=== PATIENT | male | born 1965 | race African-American/Black ===

== ENCOUNTER 2019-05-18 09:18 | Inpatient (IN) | payer OTHER ==
[2019-05-18 11:45] LABS: INR 0.93 (0.83-1.09)
[2019-05-18 12:09] LABS: HEMATOCRIT 46.5 % (35.4-49); HEMOGLOBIN 15.4 GM/dL (11.7-16.9); MCH 27.7 pg (25.7-33.7); MCHC 33.1 g/dl (32.0-35.9); MEAN CELL VOLUME 83.9 fl (80-96); MEAN PLT VOLUME 11.5 fl (7.5-11.1); PLATELET COUNT 193 K/MM3 (134-434); RBC 5.55 M/mm3 (4.00-5.60); RDW 14.5 % (11.9-15.9); WHITE BLOOD COUNT 10.3 K/mm3 (4.0-10.0)
[2019-05-18] MEDS ORDERED: PANTOPRAZOLE SODIUM 40 MG VIAL IVPUSH ONE (12:30)
[2019-05-18] MEDS ORDERED: SODIUM CHLORIDE 0.9% 1000 ML INFUS.BAG IV ONE ×2 (12:30→15:06)
[2019-05-18] MEDS ORDERED: ONDANSETRON 4 MG/2 ML VIAL IVPUSH ONE (12:30)
--- NOTE | 2019-05-18 12:36 | PDOC ---
Documentation entered by Deana Pritchett SCRIBE, acting as scribe for Lee Ann Sánchez MD. Lee Ann Sánchez MD: This documentation has been prepared by the Shreyas roach Xhesika, SCRIBE, under my direction and personally reviewed by me in its entirety. I confirm that the documentation accurately reflects all work, treatment, procedures, and medical decision making performed by me. History of Present Illness - General Chief Complaint: Chest Pain Stated Complaint: CHEST PAIN, ABD Pain, vomiting History Source: Patient Exam Limitations: No Limitations - History of Present Illness Initial Comments: 05/18/19 11:24 The patient is a 53 year old male with a significant PMH of gastritis, DM (on metformin), and HLD who presents to the emergency department for hematemesis. Pt states initially his vomit was not bloody, but several episodes later the patient noticed streaks of blood while vomiting associated with epigastric burning. The patient states he was seen at [facility] a couple of weeks ago for nausea, was diagnosed with gastritis and was d/c home with protonix and zofran. Pt states he saw his PCP, Dr. Mcnally, last week for a routine check up. Pt went back to his office yesterday for his results, his BG was in the 500's, so the patient was placed on 1000mg metformin BID and was advised to come to the ER. The patient denies chest pain, shortness of breath, headache and dizziness. Denies fever, chills, cough, diarrhea and constipation. Denies dysuria, frequency, urgency and hematuria. Allergies: NKDA PCP: Jonas Sevilla Past History - Past Medical History Allergies/Adverse Reactions: Allergies Allergy/AdvReac Type Severity Reaction Status Date / Time No Known Allergies Allergy Verified 05/18/19 09:30 COPD: No Diabetes: Yes GI Disorders: Yes (gastritis) Hypercholesterolemia: Yes - Psycho Social/Smoking Cessation Hx Smoking History: Never smoked Information on smoking cessation initiated: No Hx Alcohol Use: No Drug/Substance Use Hx: No Review of Systems - Review of Systems Able to Perform ROS?: Yes Comments:: 05/18/19 11:24 GENERAL/CONSTITUTIONAL: No fever or chills. No weakness. HEAD, EYES, EARS, NOSE AND THROAT: No change in vision. No ear pain or discharge. No sore throat. CARDIOVASCULAR: No chest pain or shortness of breath. RESPIRATORY: No cough, wheezing, or hemoptysis. GASTROINTESTINAL: + hematemesis. No nausea, diarrhea or constipation. GENITOURINARY: No dysuria, frequency, or change in urination. MUSCULOSKELETAL: No joint or muscle swelling or pain. No neck or back pain. SKIN: No rash NEUROLOGIC: No headache, vertigo, loss of consciousness, or change in strength/ sensation. ENDOCRINE: No increased thirst. No abnormal weight change. HEMATOLOGIC/LYMPHATIC: No anemia, easy bleeding, or history of blood clots. ALLERGIC/IMMUNOLOGIC: No hives or skin allergy. *Physical Exam - Vital Signs Last Vital Signs Temp Pulse Resp BP Pulse Ox 97.5 F L 85 19 145/92 98 05/18/19 09:27 05/18/19 09:27 05/18/19 09:27 05/18/19 09:27 05/18/19 09:27 - Physical Exam 05/18/19 12:33 Awake alert no acute distress lungs are clear bilaterally heart is regular with no murmurs rubs or gallops abdomen is soft and mild epigastric tenderness no rebound no guarding skin is warm and dry no rash extremities are warm well perfused patient is awake alert and oriented x3 Heart Score/ECG Review #2 ECG reviewed & interpreted by me at: 15:15 General ECG Interpretation: Sinus Rhythm, Normal Rate (75 atrial enlargement. left axis. no st eleation or depression), Normal Intervals, No acute ischemic changes ED Treatment Course - LABORATORY CBC & Chemistry Diagram: 05/18/19 11:18 05/18/19 11:18 - ADDITIONAL ORDERS Additional order review: Laboratory Results 05/18/19 05/18/19 11:40 11:15 PT with INR 11.00 INR 0.93 B-Hydroxybutyrate Cancelled - RADIOLOGY Radiology Studies Ordered: Category Date Time Status CHEST PA & LAT [RAD] Stat Radiology 05/18/19 11:15 Ordered Medical Decision Making - Medical Decision Making 05/18/19 12:34 53-year-old male here with no known past medical history complaining of nausea for 1 week was seen in the ER 1 week ago and then seen again by his primary earlier this week did have outpatient labs drawn was called to the office yesterday for glucose of 530 his hemoglobin A1c was found to be 13. Patient was given insulin in the office and discharged home on metformin 1000 mg twice daily however over the last 12 hours the patient is developed extreme nausea vomiting has had several episodes of emesis initially nonbloody but recently streaked with bright red blood denies any dark black stool no fevers no chills mild epigastric burning discomfort no chest pain no shortness of breath Differential diagnosis includes DKA, hyperglycemia and dehydration, upper GI bleed, pancreatitis gastritis plan CBC CMP type and screen coags beta hydroxybutyrate will give IV hydration 2 L normal saline Zofran and Protonix patient will likely required admission for nausea vomiting and new onset diabetes discussed with his PCP Dr. Mcnally who confirmed labs will admit to hospitalist team 05/18/19 15:06 pt with mild anion gap 19, given 2 L NS. will treat insulin 8 units for sugar 400. beta hydroxybutyrate positive. new onset diabetes. will admit to hospital. also pt with hemetemisi/ given protonix and zofran. 05/18/19 15:[address] Cross, will admit. Discharge - Discharge Information Problems reviewed: Yes Clinical Impression/Diagnosis: Hematemesis, DKA (diabetic ketoacidoses) - Admission Yes - Follow up/Referral Referrals: Jonas Mcnally MD [Primary Care Provider] - - Patient Discharge Instructions - Post Discharge Activity
[2019-05-18] MEDS ORDERED: PANTOPRAZOLE SODIUM 40 MG/100 ML BAG IVPB ONE (12:41)
[2019-05-18] MEDS ORDERED: ONDANSETRON 4 MG/2 ML VIAL ONE (12:41)
[2019-05-18 13:25] LABS: ANION GAP 19 MMOL/L (8-16); BLOOD UREA NITROGEN 17.8 mg/dL (7-18); CALCIUM 9.5 mg/dL (8.5-10.1); CHLORIDE 91 mmol/L (98-107); CO2 23 mmol/L (21-32); CREATININE 1.3 mg/dL (0.55-1.3); LIPASE 104 U/L (73-393); POTASSIUM 4.7 mmol/L (3.5-5.1); SODIUM 132 mmol/L (136-145)
[2019-05-18 13:28] LABS: GLUCOSE,RANDOM 402 mg/dL (74-106)
[2019-05-18] MEDS ORDERED: INSULIN REGULAR HUMAN 100 UNITS/ML *VIAL IVPUSH ONE (15:05)
[2019-05-18 16:20] LABS: ARTERIAL BLOOD GAS BASE EXCESS -7.8 meq/l (-2-2); ARTERIAL BLOOD GAS PCO2 29.2 mmHg (35-45); ARTERIAL BLOOD GAS PO2 101 mmHg (80-100); ARTERIAL BLOOD GAS pH 7.36 (7.35-7.45)
[2019-05-18 16:21] LABS: ALLENS TEST POSITIVE; CARBOXYHEMOGLOBIN 0.8 % (0-2)
[2019-05-18] MEDS ORDERED: LACTATED RINGERS SOLUTION 1,000 ML IV SCH (16:30)
--- NOTE | 2019-05-18 16:34 | EKG ---
Test Reason : Blood Pressure : / mmHG Vent. Rate : 075 BPM Atrial Rate : 075 BPM P-R Int : 142 ms QRS Dur : 090 ms QT Int : 396 ms P-R-T Axes : 058 004 035 degrees QTc Int : 442 ms NORMAL SINUS RHYTHM POSSIBLE LEFT ATRIAL ENLARGEMENT LEFT VENTRICULAR HYPERTROPHY ABNORMAL ECG Confirmed by MD FRANCISCO, MARKIE ([id number]) on 05/18/2019 4:34:43 PM Referred By: Confirmed By:MARKIE SINGH MD
--- NOTE | 2019-05-18 16:44 | HP ---
CHIEF COMPLAINT: nausea, vomiting PCP: Dr. Mcnally HISTORY OF PRESENT ILLNESS: 53 yo M PMH of gastritis presented to ED today for nausea / vomiting. Pt states that for the past 2 weeks he has been feeling intermittent nausea, vomiting, chest tightness. Pt went to [place] ED 2 month ago where he was told he had gastritis and was given protonix and zofran. Pt did not find much relief and went to his PCP yesterday. PCP found A1C to be 13 and BGM > 500. Pt was given insulin in office and metformin with instructions to come to the ED if he experiences nausea/ vomiting. Pt ate an apple this am and then has had vomiting and > 10 episodes of vomit today. Pt states vomit has progressively become darker in color. now it is dark brown/ black color with streaks of bright red blood. pt states this has last happened 5 years ago and was told he had gastritis. He denies having any endoscopy or colonoscopy. ER course was notable for: (1)2L IVF (2)Zofran (3)8 U Insulin (4) > Bhydroxybutyrate Recent Travel: denies PAST MEDICAL HISTORY: see HPI PAST SURGICAL HISTORY: denies Social History: Smoking:smokes 1 ppd. Alcohol:stopped drinking ROSA Apr 24 Drugs: denies Allergies No Known Allergies Allergy (Verified 05/18/19 09:30) HOME MEDICATIONS:denies taking any. recently started on protonix and zofran 2 weeks ago from [facility], started on Metformin yesterday. REVIEW OF SYSTEMS CONSTITUTIONAL: Present: weakness,diaphoresis Absent: fever, chills, malaise, loss of appetite, weight change HEENT: Absent: rhinorrhea, nasal congestion, throat pain, throat swelling, difficulty swallowing, mouth swelling, ear pain, eye pain, visual changes CARDIOVASCULAR: Present: Chest pain Absent: syncope, palpitations, irregular heart rate, lightheadedness, peripheral edema RESPIRATORY: Present: SOB Absent: cough, dyspnea with exertion, orthopnea, wheezing, stridor, hemoptysis GASTROINTESTINAL: Presen: nausea, vomiting,constipation Absent: abdominal pain, abdominal distension, diarrhea, melena, hematochezia GENITOURINARY: Present: dysuria,urgency,frequency Absent: hesitancy, hematuria, flank pain, genital pain MUSCULOSKELETAL: Absent: myalgia, arthralgia, joint swelling, back pain, neck pain SKIN: Absent: rash, itching, pallor HEMATOLOGIC/IMMUNOLOGIC: Absent: easy bleeding, easy bruising, lymphadenopathy, frequent infections ENDOCRINE: Absent: unexplained weight gain, unexplained weight loss, heat intolerance, cold intolerance NEUROLOGIC: Absent: headache, focal weakness or paresthesias, dizziness, unsteady gait, seizure, mental status changes, bladder or bowel incontinence PHYSICAL EXAMINATION Vital Signs - 24 hr 05/18/19 05/18/19 05/18/19 09:27 09:29 16:10 Temperature 97.5 F L 97.9 F Pulse Rate 85 Pulse Rate [ 110 H Right] Respiratory 19 16 Rate Blood Pressure 145/92 Blood Pressure 143/93 [Left Arm] O2 Sat by Pulse 98 98 95 Oximetry (%) GENERAL: Awake, alert, and fully oriented, in no acute distress. HEAD: Normal with no signs of trauma. EYES: Pupils equal, round and reactive to light, extraocular movements intact EARS, NOSE, THROAT: oropharynx clear without exudates. Moist mucous membranes. NECK: no JVD LUNGS: Breath sounds equal, clear to auscultation bilaterally. No accessory muscle use. HEART: Regular rate and rhythm, normal S1 and S2 without murmur, rub or gallop. ABDOMEN: Soft, nontender, not distended, hypoactive bowel sounds, no guarding, no rebound, no masses. MUSCULOSKELETAL: Normal range of motion at all joints. No bony deformities or tenderness. No CVA tenderness. UPPER EXTREMITIES: 2+ pulses, warm, well-perfused. No cyanosis. No clubbing. No peripheral edema. 5/5 muscle strength b/l LOWER EXTREMITIES: 2+ pulses, warm, well-perfused. No calf tenderness. No peripheral edema. 5/5 muscle strength b/l NEUROLOGICAL: Cranial nerves II-XII intact. Normal speech. sensation intact b/l PSYCHIATRIC: Cooperative. Good eye contact. SKIN: Warm, dry, normal turgor, no rashes or lesions noted, normal capillary refill. Laboratory Last Values WBC 10.3 K/mm3 (4.0-10.0) H 05/18/19 11:18 RBC 5.55 M/mm3 (4.00-5.60) 05/18/19 11:18 Hgb 15.4 GM/dL (11.7-16.9) 05/18/19 11:18 Hct 46.5 % (35.4-49) 05/18/19 11:18 MCV 83.9 fl (80-96) 05/18/19 11:18 MCH 27.7 pg (25.7-33.7) 05/18/19 11:18 MCHC 33.1 g/dl (32.0-35.9) 05/18/19 11:18 RDW 14.5 % (11.9-15.9) 05/18/19 11:18 Plt Count 193 K/MM3 (134-434) 05/18/19 11:18 MPV 11.5 fl (7.5-11.1) H 05/18/19 11:18 PT with INR 11.00 SEC (9.7-13.0) 05/18/19 11:15 INR 0.93 (0.83-1.09) 05/18/19 11:15 Anticoagulation Therapy No Result Required. 05/18/19 15:50 Puncture Site Left radial 05/18/19 15:50 ABG pH 7.36 (7.35-7.45) 05/18/19 15:50 ABG pCO2 at Pt Temp 29.2 mmHg (35-45) L 05/18/19 15:50 ABG pO2 at Pt Temp 101 mmHg (80-100) H 05/18/19 15:50 ABG HCO3 15.9 mmol/L (22-27) L 05/18/19 15:50 ABG O2 Sat (Measured) 97.0 % (95-98) 05/18/19 15:50 ABG O2 Content 15.3 % vol 05/18/19 15:50 ABG Base Excess -7.8 meq/l (-2-2) L 05/18/19 15:50 Jak Test Positive 05/18/19 15:50 Carboxyhemoglobin 0.8 % (0-2) 05/18/19 15:50 Methemoglobin < 1.0 % (0-2) 05/18/19 15:50 O2 Delivery Device Room air 05/18/19 15:50 Oxygen Flow Rate Yes 05/18/19 15:50 Vent Mode No Result Required. 05/18/19 15:50 Vent Rate No Result Required. 05/18/19 15:50 Mechanical Rate No Result Required. 05/18/19 15:50 Pressure Support Vent No Result Required. 05/18/19 15:50 Sodium 132 mmol/L (136-145) L 05/18/19 11:18 Potassium 4.7 mmol/L (3.5-5.1) 05/18/19 11:18 Chloride 91 mmol/L (98-107) L 05/18/19 11:18 Carbon Dioxide 23 mmol/L (21-32) 05/18/19 11:18 Anion Gap 19 MMOL/L (8-16) H 05/18/19 11:18 BUN 17.8 mg/dL (7-18) 05/18/19 11:18 Creatinine 1.3 mg/dL (0.55-1.3) 05/18/19 11:18 Est GFR (CKD-EPI)AfAm 73.22 05/18/19 11:18 Est GFR (CKD-EPI)NonAf 63.18 05/18/19 11:18 POC Glucometer 381 UNITS (80-120) 05/18/19 16:00 Random Glucose 402 mg/dL (74-106) H* 05/18/19 11:18 Calcium 9.5 mg/dL (8.5-10.1) 05/18/19 11:18 Creatine Kinase 122 U/L (26-308) 05/18/19 11:18 Troponin I < 0.02 ng/ml (0.00-0.05) 05/18/19 11:18 Lipase 104 U/L (73-393) 05/18/19 11:18 Beta-Hydroxybutyrate > 46.0 mg/dL (0.2-2.8) H 05/18/19 11:18 B-Hydroxybutyrate Cancelled 05/18/19 11:40 Blood Type O POSITIVE 05/18/19 11:18 Antibody Screen Negative 05/18/19 11:18 Current Medications Al Hydroxide/Mg Hydroxide (Mylanta Suspension -) 30 ml PO Q6HPO [facility] Lactated Ringer's (Lactated Ringers Solution) 1,000 mls @ 100 mls/hr IV ASDIR [facility] Insulin Aspart (Novolog Vial Sliding Scale -) 1 vial SQ ACHS [facility]; Protocol Pantoprazole Sodium (Protonix -) 40 mg PO DAILY [facility] ASSESSMENT/PLAN: 53 yo M PMH of gastritis, newly dx DM presented to ED today for nausea / vomiting. Pt is admitted for hyperglycemia with ketosis and hematemesis Hyperglycemia with ketosis - BGM on admission 402, B hydroxybutyrate >46 -AG 19, pH 7.36 - will recheck BMP - s/p 8 U insulin. continue iss , bgm - continue close monitoring - c/w IV LR @ 125mls/hr. got 2 U in ED -pending A1C - UA with 3+ glucose 4+ ketones Nausea, vomiting, Hematemesis - protonix 40 ivp daily - monitor H/H - GI consult, Dr. Carreno. pending callback - lipase 104 Chest Pain - EKG reviewed, NSR no ST changes -trop neg x 1 HLD - pending Lipid panel F/E/N -IV LR @ 125 mls/hr -NPO -monitor lytes Visit type - Emergency Visit Emergency Visit: No - New Patient This patient is new to me today: Yes - Critical Care Critical Care patient: No ATTENDING PHYSICIAN STATEMENT I saw and evaluated the patient. I reviewed the resident's note and discussed the case with the resident. I agree with the resident's findings and plan as documented. SUBJECTIVE: OBJECTIVE: ASSESSMENT AND PLAN:
--- NOTE | 2019-05-18 17:29 | PN ---
Teaching Attending Note Name of Resident: Leticia Ervin ATTENDING PHYSICIAN STATEMENT I saw and evaluated the patient. I reviewed the resident's note and discussed the case with the resident. I agree with the resident's findings and plan as documented. SUBJECTIVE: 3 yo M PMH of gastritis presented to ED today for nausea / vomiting. Pt states that for the past 2 weeks he has been feeling intermittent nausea, vomiting, chest tightness. Pt went to [place] ED 2 month ago where he was told he had gastritis and was given protonix and zofran. Pt did not find much relief and went to his PCP yesterday. PCP found A1C to be 13 and BGM > 500. Pt was given insulin in office and metformin with instructions to come to the ED if he experiences nausea/ vomiting. Pt ate an apple this am and then has had vomiting and > 10 episodes of vomit today. Pt states vomit has progressively become darker in color. now it is dark brown/ black color with streaks of bright red blood. also generalized pain in the chest and epigadtric for 2 weeks, pt states this has last happened 5 years ago and was told he had gastritis. He denies having any endoscopy or colonoscopy. has been having polyuria and polydipsia, ER course was notable for: OBJECTIVE: O /e is comfortable nad alert, awake and oriented to time place and person, vss neck supple no jvd cvs s1/s2/0 chest ctab abd benign ext no c/c/e neuro non focal ASSESSMENT AND PLAN: ASSESSMENT/PLAN: 53 yo M PMH of gastritis, newly dx DM presented to ED today for nausea / vomiting. Pt is admitted for hyperglycemia with ketosis and hematemesis Hyperglycemia with ketosis - BGM on admission 402, B hydroxybutyrate >46 -AG 19, pH 7.36 - will recheck BMP - s/p 8 U insulin. continue Riss , bgm - continue close monitoring - c/w IV LR @ 125mls/hr. got 2 U in ED -pending A1C - UA with 3+ glucose 4+ ketones Nausea, vomiting, Hematemesis, epigastric pain, likely from the MW tear/ gastritis, - protonix 40 ivp daily - monitor H/H - GI consult, Dr. Carreno. pending callback - lipase 104
[2019-05-18] MEDS ORDERED: MAG HYDROX/AL HYDROX/SIMETH -MYLANTA- ORAL SUSPENSION PO SCH (18:00)
[2019-05-18 18:34] LABS: EPI CELLS 0.8 /HPF (0-5/HPF); HYALINE CASTS 1 /lpf (0-8); URINE APPEARANCE CLEAR; URINE BACTERIA 16.3 /hpf (NEGATIVE); URINE BILIRUBIN NEGATIVE (NEGATIVE); URINE COLOR YELLOW; URINE GLUCOSE (UA) 3+ (NEGATIVE); URINE KETONE 4+ (NEGATIVE); URINE LEUK ESTERASE NEGATIVE (NEGATIVE); URINE NITRITE NEGATIVE (NEGATIVE); URINE PROTEIN NEGATIVE (NEGATIVE); URINE RBC 0 /hpf (0-4); URINE UROBILINOGEN 0.2 mg/dL (0.2-1.0); URINE WBC 3 /hpf (0-5)
[2019-05-18] MEDS: LACTATED RINGERS SOLUTION 1,000 ML IV SCH (18:39)
[2019-05-18] MEDS ORDERED: MAG HYDROX/AL HYDROX/SIMETH 30 ML UNIT-DOSE CUP PO SCH (18:49)
[2019-05-18] MEDS: INSULIN SLIDING SCALE (NOVOLOG) 1 VIAL SQ SCH ×2 (18:51→22:33)
[2019-05-18] MEDS ORDERED: ONDANSETRON 4 MG/2 ML VIAL IVPUSH PRN (19:56)
--- NOTE | 2019-05-18 20:32 | CON.GI ---
Consult Consult Specialty:: GI Reason for Consultation:: Hematemesis - History of Present Illness Chief Complaint: >20 episodes of emesis since this morning with clear liquid chanigng to blood streaked dark material over course of day. History of Present Illness: Patient had been well until 2 weeks ago when he developed nausea, vomiting, chest discomfort and went to local ED. Told he had gastritis and discharged home on Zofran and Protonix. No real relief over last 2 weeks and this morning with progressive vomiting of clear material, evolving over the 20 or so episodes of emesis today to coffee ground like material and blood streaking. Hemoglobin normal in ED. Continues with nausea. Elevated blood sugar and ketonuria, serum hydroxybutyrate elevated. No known history of upper GI disease. No aspirin, Motrin, ibuprofen, or Aleve. No known liver disease. No family history of GI illness. - History Source History Provided By: Patient - Past Medical History Gastrointestinal: Yes: Gastritis. No: Esophageal Varices, GERD, GI Bleed - Alcohol/Substance Use Hx Alcohol Use: No - Smoking History Smoking history: Never smoked Home Medications - Allergies Allergies/Adverse Reactions: Allergies Allergy/AdvReac Type Severity Reaction Status Date / Time No Known Allergies Allergy Verified 05/18/19 09:30 Family Medical History Family History: Unremarkable Review of Systems - Review of Systems Gastrointestinal: reports: Vomiting, Vomiting Blood. denies: Abdominal Pain, Bloating, Constipation, Diarrhea, Dysphagia, Indigestion, Melena, Rectal Bleeding Physical Exam-GI Vital Signs: Vital Signs Temperature 97.9 F 05/18/19 16:10 Pulse Rate 110 H 05/18/19 16:10 Respiratory Rate 16 05/18/19 16:10 Blood Pressure 143/93 05/18/19 16:10 O2 Sat by Pulse Oximetry (%) 95 05/18/19 16:10 Constitutional: Yes: Well Nourished, No Distress, Calm Neck: No: Lymphadenopathy, Thyromegaly Cardiovascular: Yes: Tachycardia, S1, S2. No: Murmur Respiratory: Yes: CTA Bilaterally ...Auscultate: Yes: Normoactive Bowel Sounds ...Palpate: Yes: Soft. No: Hepatomegaly, Mass, Splenomegaly, Tenderness Labs: CBC, BMP 05/18/19 11:18 INR, PTT INR 0.93 (0.83-1.09) 05/18/19 11:15 Imaging - Results Chest X-ray: Report Reviewed Problem List - Problems (1) DKA (diabetic ketoacidoses) Assessment/Plan: Almost certainly the etiology of current nausea and vomiting. Appreciate efforts to control. Code(s): E11.10 - TYPE 2 DIABETES MELLITUS WITH KETOACIDOSIS WITHOUT COMA (2) Hematemesis Assessment/Plan: Hematemesis (and preceding bland emesis) with associated nausea likely a function of DKA. Bleeding component likely from Aga-Medina tear, but other etiologies possible including PUD, black esophagus, and others. Suggest: 1. NPO 2. 2 large bore IV's 3. Type and cross 4. IV PPI 5. Serial VSs and hemoglobin checks 6. Probable EGD tomorrow presuming stable blood glucose control 7. Anti-emetics Plans reviewed with agriculture consultant medicine resident at 8 PM Code(s): K92.0 - HEMATEMESIS
[2019-05-18 20:38] LABS: CALCIUM 9.7 mg/dL (8.5-10.1); CREATININE 1.1 mg/dL (0.55-1.3); POTASSIUM 4.6 mmol/L (3.5-5.1)
[2019-05-18] MEDS: MAG HYDROX/AL HYDROX/SIMETH 30 ML UNIT-DOSE CUP PO SCH (21:00)
[2019-05-18] MEDS: PANTOPRAZOLE SODIUM 40 MG VIAL IVPUSH SCH (22:11)
[2019-05-19] MEDS: MAG HYDROX/AL HYDROX/SIMETH 30 ML UNIT-DOSE CUP PO SCH ×4 (01:23→11:42)
[2019-05-19] MEDS: LACTATED RINGERS SOLUTION 1,000 ML IV SCH (05:52)
[2019-05-19] MEDS: INSULIN SLIDING SCALE (NOVOLOG) 1 VIAL SQ SCH ×4 (06:03→21:26)
[2019-05-19 08:12] LABS: BASO % 0.3 % (0-2.0); EOS % 0.1 % (0-4.5); HEMATOCRIT 46.3 % (35.4-49); HEMOGLOBIN 15.3 GM/dL (11.7-16.9); LYMPH % 8.3 % (8-40); MCH 27.6 pg (25.7-33.7); MEAN CELL VOLUME 83.6 fl (80-96); MEAN PLT VOLUME 11.4 fl (7.5-11.1); MONO % 4.2 % (3.8-10.2); NEUT % 87.1 % (42.8-82.8); PLATELET COUNT 170 K/MM3 (134-434); RBC 5.54 M/mm3 (4.00-5.60); RDW 14.6 % (11.9-15.9); WHITE BLOOD COUNT 12.7 K/mm3 (4.0-10.0)
[2019-05-19 09:40] LABS: CHOLESTEROL 244 mg/dL (50-200); HDL CHOLESTEROL 73 mg/dL (40-60); LDL CHOLESTEROL (ONLY SJRH) 144 mg/dL (5-100); TRIGLYCERIDES 100 mg/dL (0-150)
[2019-05-19 09:55] LABS: ALBUMIN 3.4 g/dl (3.4-5.0); BILIRUBIN,TOTAL 0.6 mg/dL (0.2-1); BLOOD UREA NITROGEN 20.3 mg/dL (7-18); CALCIUM 9.4 mg/dL (8.5-10.1); CREATININE 1.1 mg/dL (0.55-1.3); MAGNESIUM 2.7 mg/dL (1.8-2.4); PHOSPHOROUS 2.9 mg/dL (2.5-4.9); POTASSIUM 4.1 mmol/L (3.5-5.1); TOT PROT 6.7 g/dl (6.4-8.2)
[2019-05-19] MEDS ORDERED: PANTOPRAZOLE SODIUM 40 MG VIAL IVPUSH SCH (10:00)
[2019-05-19] MEDS ORDERED: PANTOPRAZOLE 40 MG TABLET PO SCH (10:00)
[2019-05-19] MEDS ORDERED: INSULIN (NOVOLOG) ASPART 100 UNITS/ML 10ML VIAL ONE (10:11)
[2019-05-19] MEDS: PANTOPRAZOLE SODIUM 40 MG VIAL IVPUSH SCH (10:20)
[2019-05-19] MEDS ORDERED: PT OWN MED DRAWER 7, Y5N ONE (11:41)
[2019-05-19] MEDS ORDERED: METOPROLOL TARTRATE 50 MG TABLET (FP) PO ONE (12:45)
--- NOTE | 2019-05-19 15:20 | PN ---
Progress Note, Physician Chief Complaint: hyperglycemia and hematemesis History of Present Illness: 53 year old male with PMH gastritis and DM with hyperglycemia presents to the ED with GERD like symptoms, worsened by DKA. - Current Medication List Current Medications: Active Medications Al Hydroxide/Mg Hydroxide (Mylanta Oral Suspension -) 30 ml PO Q6HPO [facility] Last Admin: 05/19/19 11:42 Dose: 30 ml Insulin Aspart (Novolog Vial Sliding Scale -) 1 vial SQ ACHS [facility]; Protocol Last Admin: 05/19/19 11:39 Dose: 4 units Ondansetron HCl (Zofran Injection) 4 mg IVPUSH Q4H PRN PRN Reason: NAUSEA AND/OR VOMITING Pantoprazole Sodium (Protonix Iv) 40 mg IVPUSH BID [facility] Last Admin: 05/19/19 10:20 Dose: 40 mg - Objective Vital Signs: Vital Signs Temperature 98.8 F 05/19/19 09:00 Pulse Rate 99 H 05/19/19 09:00 Respiratory Rate 18 05/19/19 09:00 Blood Pressure 159/104 H 05/19/19 09:00 O2 Sat by Pulse Oximetry (%) 98 05/19/19 09:00 Constitutional: Yes: Well Nourished, No Distress HENT: Yes: Atraumatic, Normocephalic Neck: Yes: Supple Cardiovascular: Yes: Regular Rate and Rhythm Respiratory: Yes: Regular, CTA Bilaterally Gastrointestinal: Yes: Normal Bowel Sounds, Soft Genitourinary: Yes: WNL Musculoskeletal: Yes: WNL Extremities: Yes: WNL Integumentary: Yes: WNL Neurological: Yes: Alert, Oriented Psychiatric: Yes: Alert, Oriented Labs: CBC, BMP 05/19/19 07:38 05/19/19 07:38 INR, PTT INR 0.93 (0.83-1.09) 05/18/19 11:15 Problem List - Problems (1) Chest pain due to GERD Assessment/Plan: cardiology eval pending likely GERD PPI, mylanta denies complaints, not reproducible ekg ok trop neg Code(s): R07.9 - CHEST PAIN, UNSPECIFIED; K21.9 - GASTRO-ESOPHAGEAL REFLUX DISEASE WITHOUT ESOPHAGITIS (2) Gastritis Assessment/Plan: GI Following NPO IVF- ivf was stopped r/t BP rising, will resume at lower dose IV antiemetics IV PPI for possible EGD Code(s): K29.70 - GASTRITIS, UNSPECIFIED, WITHOUT BLEEDING (3) Uncontrolled diabetes mellitus Assessment/Plan: endocrine consult a1c 14!! sliding scale monitor glucose especially while NPO IV hydration hold metformin while npo Code(s): E11.65 - TYPE 2 DIABETES MELLITUS WITH HYPERGLYCEMIA (4) FLEX (acute kidney injury) Assessment/Plan: IV F Code(s): N17.9 - ACUTE KIDNEY FAILURE, UNSPECIFIED (5) Hyperlipidemia Assessment/Plan: will need statin added when not npo total chol 244 Code(s): E78.5 - HYPERLIPIDEMIA, UNSPECIFIED (6) DKA (diabetic ketoacidoses) Assessment/Plan: endocrine eval IV hydration aggressively hold metformin while npo Code(s): E11.10 - TYPE 2 DIABETES MELLITUS WITH KETOACIDOSIS WITHOUT COMA (7) Hematemesis Assessment/Plan: GI following monitor for hematemesis PPI for EGD Code(s): K92.0 - HEMATEMESIS
--- NOTE | 2019-05-19 15:44 | PN.GI ---
GI Progress Note Subjective: No vomiting No melena No anemia Patient had chest pain this morning so EGD cancelled - Objective Vital Signs: Vital Signs Temperature 98.8 F 05/19/19 09:00 Pulse Rate 99 H 05/19/19 09:00 Respiratory Rate 18 05/19/19 09:00 Blood Pressure 159/104 H 05/19/19 09:00 O2 Sat by Pulse Oximetry (%) 98 05/19/19 09:00 Constitutional: Calm Eyes: No: Sclera Icterus Cardiovascular: Yes: Regular Rate and Rhythm Respiratory: Yes: CTA Bilaterally Gastrointestinal Inspection: No: Distention ...Auscultate: Yes: Normoactive Bowel Sounds ...Palpate: Yes: Soft ...Percussion: No: Tympanitic Edema: No (No LE edema) Neurological: Yes: Alert Labs: CBC, BMP 05/19/19 07:38 05/19/19 07:38 INR, PTT INR 0.93 (0.83-1.09) 05/18/19 11:15 Problem List - Problems (1) Hematemesis Assessment/Plan: No further vomiting, vomiting of blood. normal BUN and Hgb. Suepsct irritation from retching or possible nick treviño tear When cleared from cardiology standpoint can have EGD Advance diet Protonix 40mg daily Code(s): K92.0 - HEMATEMESIS
[2019-05-19] MEDS: SODIUM CHLORIDE 1,000 ML IV SCH (16:35)
--- NOTE | 2019-05-19 17:20 | CON.CARD ---
Consult Consult Specialty:: Cardiology Referred by:: Dr. Fall Reason for Consultation:: chest pain - History of Present Illness Chief Complaint: abdominal pain, nausea, vomiting. History of Present Illness: 53 year old man with known gastritis, sent to ER by pmd for 2 week history of recurrent nausea, vomiting, chest tightness and found to have severe uncontrolled diabetes concerning for DKA. pt seen and examined today in nad. states he has vomited multiple times and vomit has become darker in color. denies any other chest pain prior to the onset of his nausea and vomiting. no sob, palpitations, pnd, orthopnea, LE edema. - History Source History Provided By: Patient, Medical Record Limitations to Obtaining History: No Limitations - Past Medical History Gastrointestinal: Yes: Gastritis. No: Esophageal Varices, GERD, GI Bleed - Alcohol/Substance Use Hx Alcohol Use: No - Smoking History Smoking history: Never smoked Home Medications - Allergies Allergies/Adverse Reactions: Allergies Allergy/AdvReac Type Severity Reaction Status Date / Time No Known Allergies Allergy Verified 05/18/19 09:30 - Home Medications Home Medications: Ambulatory Orders metFORMIN HCL [Metformin HCl] 1,000 mg PO BIDAC 05/19/19 Family Medical History Family History: Denies Review of Systems - Review of Systems Constitutional: reports: Loss of Appetite. denies: No Symptoms, Chills, Diaphoresis, Fever, Lethargy, Malaise, Night Sweats, Unintentional Wgt. Loss, Weakness, Other Eyes: denies: No Symptoms, Blind Spots, Blurred Vision, Double Vision, Eye Pain , Floaters, Photophobia, Recent Change in Vision, Other HENT: denies: No Symptoms, Difficult Swallowing, Ear Discharge, Ear Pain, Epistaxis, Gingival Bleeding, Hearing Loss, Mouth Swelling, Nasal Congestion, Ocular Prosthesis, Throat Pain, Toothache, Ringing in Ears, Other Neck: denies: No Symptoms, Decreased ROM, Lumps, Pain on Movement, Stiffness, Swollen Glands, Tenderness, Other Cardiovascular: reports: Chest Pain. denies: No Symptoms, Edema, Palpitations, Shortness of Breath, Other Respiratory: denies: No Symptoms, Cough, Exercise Intolerance, Hemoptysis, Orthopnea, PND, Snoring, SOB, SOB on Exertion, Wheezing, Other Gastrointestinal: reports: Abdominal Pain, Nausea, Vomiting, Vomiting Blood. denies: No Symptoms, Bloating, Constipation, Diarrhea, Dysphagia, Indigestion, Melena, Rectal Bleeding, Other Genitourinary: denies: No Symptoms, Burning, Discharge, Dysuria, Flank Pain, Frequency, Hematuria, Incontinence, Lesions, Menses, Pain, Testicular Mass, Testicular Pain, Testicular Swelling, Urgency, Vaginal Bleeding, Other Breasts: denies: No Symptoms Reported, See HPI, Breast Implants, Discharge from Nipple, Lumps, Pain, Skin Changes, Other Musculoskeletal: denies: No Symptoms, Back Pain, Crepitus, Decreased ROM, Extremity Pain, Joint Pain, Joint Swelling, Muscle Pain, Muscle Cramps, Muscle Weakness, Other Integumentary: denies: No Symptoms, Blister, Bruising, Change in Color, Eczema, Erythema, Incision, Lesions, Lump, Pallor, Pruritis, Rash, Wound, Other Neurological: denies: No Symptoms, Change in LOC, Change in Speech, Confusion, Dizziness, Headache, Incoordination, Numbness, Parasthesia, Pre-Existing Deficit , Seizure, Syncope, Tremors, Unsteady Gait, Weakness, Other Endocrine: denies: No Symptoms, Excessive Sweating, Flushing, Increased Hunger, Increased Thirst, Intolerance to Cold, Intolerance to Heat, Unexplained Weight Gain, Unexplained Weight Loss, Other Hematology/Lymphatic: denies: No Symptoms, Easily Bruised, Excessive Bleeding, Swollen Glands, Other Psychiatric: denies: No Symptoms, Altered Sleep Pattern, Anxiety, Depression, Hallucinations, Panic, Paranoia, Suicidal, Other - Risk Factors Known Risk Factors: Yes: Diabetes Mellitus Vital Signs: Vital Signs Temperature 98.8 F 05/19/19 14:00 Pulse Rate 92 H 05/19/19 14:00 Respiratory Rate 18 05/19/19 14:00 Blood Pressure 146/87 05/19/19 14:00 O2 Sat by Pulse Oximetry (%) 98 05/19/19 09:00 Constitutional: Yes: No Distress, Calm Eyes: Yes: Conjunctiva Clear, EOM Intact HENT: Yes: Atraumatic, Normocephalic Neck: Yes: Supple, Trachea Midline Respiratory: Yes: Regular, CTA Bilaterally. No: Rales, Rhonchi, Wheezes Gastrointestinal: Yes: Normal Bowel Sounds, Soft Cardiovascular: Yes: Regular Rate and Rhythm. No: Bradycardia, Tachycardia, Pulse Irregular, Gallop, Rub, Varicosities JVD: No Carotid Bruit: No Heart Sounds: Yes: S1, S2. No: Split S2, S3, S4, Clicks, Gallop, Rub, Bruit Murmur: No: Systolic Murmur, Diastolic Murmur Extremities: Yes: WNL Edema: No Peripheral Pulses WNL: Yes Peripheral Pulses: 2+ Left Doralis Pedis, 2+ Right Dorsalis Pedis Neurological: Yes: Alert, Oriented Psychiatric: Yes: Alert, Oriented - Other Data Labs, Other Data: CBC, BMP 05/19/19 07:38 05/19/19 07:38 INR, PTT INR 0.93 (0.83-1.09) 05/18/19 11:15 nsr 75bpm, lae, lvh Imaging - Results Chest X-ray: Report Reviewed, Image Reviewed EKG: Report Reviewed, Image Reviewed Other: Report Reviewed, Image Reviewed Assessment/Plan 53 year old man with known gastritis, sent to ER by pmd for 2 week history of recurrent nausea, vomiting, chest tightness and found to have severe uncontrolled diabetes concerning for DKA. pt seen and examined today in nad. states he has vomited multiple times and vomit has become darker in color. denies any other chest pain prior to the onset of his nausea and vomiting. no sob, palpitations, pnd, orthopnea, LE edema. Chest pain-likely non-cardiac -likely GI secondary to recurrent vomiting -no ischemia on ekg -cardiac enzymes wnl -does not require additional inpatient cardiac work up at this time HTN -called by RN that pts BP is currently elevated 190s/100s -no report of chronic htn -review of BP trend from hospitalization thus far shows mildly elevated bp at baseline with intermittent severe uncontrolled periods -likely exacerbated by pain, dka -can start amlodipine 5mg now and daily -monitor bp trend and adjust as needed as per PMD no additional cardiac testing is needed at this time. will see as needed. please call with any additional questions.
[2019-05-19] MEDS: amLODIPine BESYLATE 5 MG TABLET (FP) PO SCH (18:11)
[2019-05-19 21:23] LABS: BASO % 0.3 % (0-2.0); HEMATOCRIT 43.3 % (35.4-49); HEMOGLOBIN 14.1 GM/dL (11.7-16.9); LYMPH % 8.5 % (8-40); MCH 27.3 pg (25.7-33.7); MCHC 32.6 g/dl (32.0-35.9); MEAN CELL VOLUME 83.9 fl (80-96); MEAN PLT VOLUME 11.6 fl (7.5-11.1); NEUT % 87.2 % (42.8-82.8); PLATELET COUNT 154 K/MM3 (134-434); RBC 5.16 M/mm3 (4.00-5.60); RDW 14.6 % (11.9-15.9)
[2019-05-20] MEDS: SODIUM CHLORIDE 1,000 ML IV SCH (05:05)
[2019-05-20] MEDS: INSULIN SLIDING SCALE (NOVOLOG) 1 VIAL SQ SCH ×5 (06:02→21:34)
[2019-05-20 08:11] LABS: BASO % 0.4 % (0-2.0); EOS % 0.1 % (0-4.5); HEMOGLOBIN 14.2 GM/dL (11.7-16.9); LYMPH % 10.9 % (8-40); MCH 27.8 pg (25.7-33.7); MCHC 33.1 g/dl (32.0-35.9); MEAN CELL VOLUME 84.1 fl (80-96); MEAN PLT VOLUME 11.8 fl (7.5-11.1); MONO % 4.8 % (3.8-10.2); NEUT % 83.8 % (42.8-82.8); RBC 5.11 M/mm3 (4.00-5.60); RDW 14.7 % (11.9-15.9); WHITE BLOOD COUNT 9.5 K/mm3 (4.0-10.0)
[2019-05-20 08:28] LABS: ALBUMIN 3.2 g/dl (3.4-5.0); BILIRUBIN,TOTAL 0.5 mg/dL (0.2-1); BLOOD UREA NITROGEN 19.1 mg/dL (7-18); CALCIUM 9.4 mg/dL (8.5-10.1); POTASSIUM 4.1 mmol/L (3.5-5.1); TOT PROT 6.4 g/dl (6.4-8.2)
--- NOTE | 2019-05-20 08:56 | PN ---
Progress Note (short form) - Note Progress Note: No vomiting No bleeding Cleared by cardiology Patient ate full liquid breakfast today EGD Monday 04/24 Problem List - Problems (1) Hematemesis Code(s): K92.0 - HEMATEMESIS
[2019-05-20 09:57] LABS: PLATELET ESTIMATE DECREASED
[2019-05-20 10:52] LABS: PLATELET COUNT 137 K/MM3 (134-434)
[2019-05-20] MEDS: amLODIPine BESYLATE 5 MG TABLET (FP) PO SCH (11:24)
[2019-05-20] MEDS: PANTOPRAZOLE 40 MG TABLET PO SCH (11:24)
--- NOTE | 2019-05-20 15:14 | PN ---
Progress Note, Physician Chief Complaint: hyperglycemia and hematemesis History of Present Illness: 53 year old male with PMH gastritis and DM with hyperglycemia presents to the ED with GERD like symptoms, worsened by DKA. - Current Medication List Current Medications: Active Medications Amlodipine Besylate (Norvasc -) 5 mg PO DAILY [facility] Last Admin: 05/20/19 11:24 Dose: 5 mg Sodium Chloride (Normal Saline -) 1,000 mls @ 75 mls/hr IV ASDIR [facility] Last Admin: 05/20/19 05:05 Dose: 75 mls/hr Insulin Aspart (Novolog Vial Sliding Scale -) 1 vial SQ ACHS [facility]; Protocol Last Admin: 05/20/19 12:01 Dose: 8 units Insulin Detemir (Levemir Vial) 20 units SQ BID [facility] Pantoprazole Sodium (Protonix -) 40 mg PO DAILY [facility] Last Admin: 05/20/19 11:24 Dose: 40 mg - Objective Vital Signs: Vital Signs Temperature 98.8 F 05/20/19 10:00 Pulse Rate 92 H 05/20/19 10:00 Respiratory Rate 18 05/20/19 10:00 Blood Pressure 144/94 05/20/19 10:00 O2 Sat by Pulse Oximetry (%) 98 05/19/19 21:00 Constitutional: Yes: Well Nourished, No Distress HENT: Yes: Atraumatic, Normocephalic Neck: Yes: Supple Cardiovascular: Yes: Regular Rate and Rhythm Respiratory: Yes: Regular, CTA Bilaterally Gastrointestinal: Yes: Normal Bowel Sounds, Soft Genitourinary: Yes: WNL Musculoskeletal: Yes: WNL Extremities: Yes: WNL Integumentary: Yes: WNL Neurological: Yes: Alert, Oriented Psychiatric: Yes: Alert, Oriented Labs: CBC, BMP 05/20/19 06:25 05/20/19 06:25 INR, PTT INR 0.93 (0.83-1.09) 05/18/19 11:15 Problem List - Problems (1) Chest pain due to GERD Assessment/Plan: cardiology consult appreciated, signed off, ok for proceeding with EGD likely GERD PPI, mylanta denies complaints, not reproducible Code(s): R07.9 - CHEST PAIN, UNSPECIFIED; K21.9 - GASTRO-ESOPHAGEAL REFLUX DISEASE WITHOUT ESOPHAGITIS (2) Gastritis Assessment/Plan: GI Following diet advanced IV antiemetics IV PPI for EGD Thursday Code(s): K29.70 - GASTRITIS, UNSPECIFIED, WITHOUT BLEEDING (3) Uncontrolled diabetes mellitus Assessment/Plan: endocrine consult a1c 14!! sliding scale hold metformin Code(s): E11.65 - TYPE 2 DIABETES MELLITUS WITH HYPERGLYCEMIA (4) FLEX (acute kidney injury) Assessment/Plan: IVF dc as eating/drinking monitor creat today 1.0 Code(s): N17.9 - ACUTE KIDNEY FAILURE, UNSPECIFIED (5) Hyperlipidemia Assessment/Plan: will need statin added when not npo total chol 244 Code(s): E78.5 - HYPERLIPIDEMIA, UNSPECIFIED (6) DKA (diabetic ketoacidoses) Assessment/Plan: endocrine eval hold metformin while npo a1c high sliding scale Code(s): E11.10 - TYPE 2 DIABETES MELLITUS WITH KETOACIDOSIS WITHOUT COMA (7) Hematemesis Assessment/Plan: GI following monitor for hematemesis PPI for EGD thursday Code(s): K92.0 - HEMATEMESIS
--- NOTE | 2019-05-20 15:39 | CONSULT ---
Consult Consult Specialty:: endocrine Referred by:: dr.naem combs Reason for Consultation:: dm new onset - History of Present Illness Chief Complaint: nausea and vomiting History of Present Illness: 53 yo M PMH of gastritis presented for nausea / vomiting. Pt has been feeling intermittent nausea, vomiting, chest tightness. Pt went to [facility] ED 2 month ago where he was told he had gastritis and was given protonix and zofran. Pt did not find much relief was found to have elevated blood sugars and elevated hba1c,he remained nauseas and vomited several times despite poor po intake.he denies fever cough chills,or headache - Past Medical History Gastrointestinal: Yes: Gastritis. No: Esophageal Varices, GERD, GI Bleed - Alcohol/Substance Use Hx Alcohol Use: No - Smoking History Smoking history: Never smoked Home Medications - Allergies Allergies/Adverse Reactions: Allergies Allergy/AdvReac Type Severity Reaction Status Date / Time No Known Allergies Allergy Verified 05/18/19 09:30 - Home Medications Home Medications: Ambulatory Orders metFORMIN HCL [Metformin HCl] 1,000 mg PO BIDAC 05/19/19 Review of Systems - Review of Systems Constitutional: reports: Loss of Appetite, Weakness Eyes: reports: Blurred Vision HENT: reports: No Symptoms Neck: reports: No Symptoms Cardiovascular: reports: No Symptoms Respiratory: reports: No Symptoms Gastrointestinal: reports: Bloating, Constipation, Nausea Genitourinary: reports: No Symptoms Breasts: reports: No Symptoms Reported Musculoskeletal: reports: No Symptoms Integumentary: reports: No Symptoms Neurological: reports: No Symptoms Endocrine: reports: Increased Thirst, Intolerance to Heat Physical Exam Vital Signs: Vital Signs Temperature 99.2 F 05/20/19 15:18 Pulse Rate 88 05/20/19 15:18 Respiratory Rate 18 05/20/19 15:18 Blood Pressure 152/82 05/20/19 15:18 O2 Sat by Pulse Oximetry (%) 98 05/19/19 21:00 Constitutional: Yes: Calm Eyes: Yes: EOM Intact HENT: Yes: Normocephalic Neck: Yes: Trachea Midline Cardiovascular: Yes: Regular Rate and Rhythm Respiratory: Yes: CTA Bilaterally Gastrointestinal: Yes: Normal Bowel Sounds ...Rectal Exam: Yes: Deferred Renal/: Yes: WNL Musculoskeletal: Yes: WNL Extremities: Yes: WNL Integumentary: Yes: WNL Neurological: Yes: Alert, Oriented Labs: CBC, BMP 05/20/19 06:25 05/20/19 06:25 Assessment/Plan Current Active Problems FLEX (acute kidney injury) (Acute) Chest pain due to GERD (Acute) DKA (diabetic ketoacidoses) (Acute) Gastritis (Acute) Hematemesis (Acute) Hyperlipidemia (Acute) Uncontrolled diabetes mellitus (Acute) Abnormal Lab Results 05/19/19 05/20/19 05/20/19 19:45 06:25 06:25 WBC 12.0 H MPV 11.6 H 11.8 H Absolute Neuts (auto) 10.5 H Neutrophils % 87.2 H 83.8 H BUN 19.1 H Random Glucose 274 H AST 8 L Albumin 3.2 L Laboratory Results - last 24 hr 05/19/19 05/19/19 05/19/19 16:31 19:45 21:24 WBC 12.0 H RBC 5.16 Hgb 14.1 Hct 43.3 MCV 83.9 MCH 27.3 MCHC 32.6 RDW 14.6 Plt Count 154 MPV 11.6 H Absolute Neuts (auto) 10.5 H Neutrophils % 87.2 H Lymphocytes % 8.5 Monocytes % 4.0 Eosinophils % 0.0 D Basophils % 0.3 Nucleated RBC % 0 Platelet Estimate Platelet Comment Sodium Potassium Chloride Carbon Dioxide Anion Gap BUN Creatinine Est GFR (CKD-EPI)AfAm Est GFR (CKD-EPI)NonAf POC Glucometer 273 252 Random Glucose Calcium Total Bilirubin AST ALT Alkaline Phosphatase Total Protein Albumin 05/20/19 05/20/19 05/20/19 05:52 06:25 06:25 WBC 9.5 RBC 5.11 Hgb 14.2 Hct 43.0 MCV 84.1 MCH 27.8 MCHC 33.1 RDW 14.7 Plt Count 137 MPV 11.8 H Absolute Neuts (auto) 7.9 Neutrophils % 83.8 H Lymphocytes % 10.9 D Monocytes % 4.8 Eosinophils % 0.1 D Basophils % 0.4 Nucleated RBC % 0 Platelet Estimate Decreased Platelet Comment Present Sodium 140 Potassium 4.1 Chloride 106 Carbon Dioxide 24 Anion Gap 11 BUN 19.1 H Creatinine 1.0 Est GFR (CKD-EPI)AfAm 100.55 Est GFR (CKD-EPI)NonAf 86.76 POC Glucometer 281 Random Glucose 274 H Calcium 9.4 Total Bilirubin 0.5 AST 8 L ALT 17 Alkaline Phosphatase 100 Total Protein 6.4 Albumin 3.2 L 05/20/19 12:00 WBC RBC Hgb Hct MCV MCH MCHC RDW Plt Count MPV Absolute Neuts (auto) Neutrophils % Lymphocytes % Monocytes % Eosinophils % Basophils % Nucleated RBC % Platelet Estimate Platelet Comment Sodium Potassium Chloride Carbon Dioxide Anion Gap BUN Creatinine Est GFR (CKD-EPI)AfAm Est GFR (CKD-EPI)NonAf POC Glucometer 281 Random Glucose Calcium Total Bilirubin AST ALT Alkaline Phosphatase Total Protein Albumin Laboratory Tests 05/19/19 07:38 TSH 0.07 L plan: bgm qachs novolog doses levemir titrate doses 20 iu bid diet nutrition
[2019-05-20 16:10] VITALS: BMI 29.6
[2019-05-20] MEDS ORDERED: INSULIN (NOVOLOG) ASPART 100 UNITS/ML 10ML VIAL ONE ×2 (17:24→21:15)
[2019-05-20] MEDS ORDERED: PT OWN MED DRAWER 7, Y5N ONE (18:47)
[2019-05-20] MEDS ORDERED: INSULIN (LEVEMIR) 100 UNITS/ML UNITS SQ SCH (22:00)
[2019-05-20] MEDS: ONDANSETRON 4 MG/2 ML VIAL IVPUSH PRN (22:47)
[2019-05-21] MEDS: INSULIN SLIDING SCALE (NOVOLOG) 1 VIAL SQ SCH ×4 (06:30→21:45)
[2019-05-21 08:45] LABS: BASO % 0.3 % (0-2.0); EOS % 0.5 % (0-4.5); HEMATOCRIT 42.7 % (35.4-49); HEMOGLOBIN 14.4 GM/dL (11.7-16.9); LYMPH % 27.2 % (8-40); MCH 27.7 pg (25.7-33.7); MCHC 33.7 g/dl (32.0-35.9); MEAN CELL VOLUME 82.3 fl (80-96); MEAN PLT VOLUME 11.3 fl (7.5-11.1); PLATELET COUNT 144 K/MM3 (134-434); RBC 5.18 M/mm3 (4.00-5.60); RDW 14.4 % (11.9-15.9); WHITE BLOOD COUNT 6.7 K/mm3 (4.0-10.0)
[2019-05-21] MEDS ORDERED: INSULIN (LEVEMIR) 100 UNITS/ML UNITS SQ ONE ×2 (09:23→11:16)
[2019-05-21] MEDS: PANTOPRAZOLE 40 MG TABLET PO SCH (09:28)
[2019-05-21] MEDS: amLODIPine BESYLATE 5 MG TABLET (FP) PO SCH (09:28)
[2019-05-21 09:46] LABS: ALBUMIN 3.2 g/dl (3.4-5.0); BLOOD UREA NITROGEN 14.6 mg/dL (7-18); CALCIUM 8.8 mg/dL (8.5-10.1); CREATININE 0.9 mg/dL (0.55-1.3); POTASSIUM 3.8 mmol/L (3.5-5.1); TOT PROT 6.6 g/dl (6.4-8.2)
--- NOTE | 2019-05-21 10:05 | PN ---
Progress Note, Physician Chief Complaint: Gastritis Hyperglycemia DM Hematemesis History of Present Illness: Previous notes and events reviewed awake and alert NAD denies further episodes of hematemesis denies chest pain or palpitations is scheduled for EGD on Thursday BS better controlled AG 19~7 - Current Medication List Current Medications: Active Medications Amlodipine Besylate (Norvasc -) 5 mg PO DAILY [facility] Last Admin: 05/21/19 09:28 Dose: 5 mg Insulin Aspart (Novolog Vial Sliding Scale -) 1 vial SQ ACHS [facility]; Protocol Last Admin: 05/21/19 06:30 Dose: 5 units Insulin Detemir (Levemir Vial) 20 units SQ 0700,2200 [facility] Last Admin: 05/21/19 09:30 Dose: 20 units Ondansetron HCl (Zofran Injection) 4 mg IVPUSH Q6H PRN PRN Reason: NAUSEA Last Admin: 05/20/19 22:47 Dose: 4 mg Pantoprazole Sodium (Protonix -) 40 mg PO DAILY [facility] Last Admin: 05/21/19 09:28 Dose: 40 mg - Objective Vital Signs: Vital Signs Temperature 99.3 F 05/21/19 06:00 Pulse Rate 68 05/21/19 09:30 Respiratory Rate 18 05/21/19 09:30 Blood Pressure 148/82 05/21/19 09:30 O2 Sat by Pulse Oximetry (%) 99 05/21/19 09:00 Constitutional: Yes: No Distress, Calm Eyes: Yes: Conjunctiva Clear HENT: Yes: Atraumatic Cardiovascular: Yes: Regular Rate and Rhythm Respiratory: Yes: Regular, CTA Bilaterally Gastrointestinal: Yes: Normal Bowel Sounds, Soft Musculoskeletal: Yes: WNL Extremities: Yes: WNL Edema: No Neurological: Yes: Alert, Oriented Psychiatric: Yes: Alert, Oriented Labs: CBC, BMP 05/21/19 07:53 05/21/19 07:53 INR, PTT INR 0.93 (0.83-1.09) 05/18/19 11:15 Problem List - Problems (1) FLEX (acute kidney injury) Assessment/Plan: resolved BUN/Cr 14.9/0.6 monitor Renal function Code(s): N17.9 - ACUTE KIDNEY FAILURE, UNSPECIFIED (2) Gastritis Assessment/Plan: GI on board Pantoprazole for EGD on Thursday full liquid diet Code(s): K29.70 - GASTRITIS, UNSPECIFIED, WITHOUT BLEEDING (3) Hyperlipidemia Assessment/Plan: TC 244 will start on Crestor 5mg HS Code(s): E78.5 - HYPERLIPIDEMIA, UNSPECIFIED (4) Uncontrolled diabetes mellitus Assessment/Plan: Endocrinology on board Lantus 20U SQ BID ISS Hga1c 14% AG 19~7 Dietary consult Code(s): E11.65 - TYPE 2 DIABETES MELLITUS WITH HYPERGLYCEMIA (5) Hematemesis Assessment/Plan: GI on board no further episodes reported for ENdoscopy on Thursday Pantoprazole stable Hg 14.4 Code(s): K92.0 - HEMATEMESIS (6) Chest pain due to GERD Assessment/Plan: Cardiology on board cleared for EGD on thursday no further reports of chest pain Code(s): R07.9 - CHEST PAIN, UNSPECIFIED; K21.9 - GASTRO-ESOPHAGEAL REFLUX DISEASE WITHOUT ESOPHAGITIS Assessment/Plan see problem list SCDs
[2019-05-21] MEDS ORDERED: INSULIN (NOVOLOG) ASPART 100 UNITS/ML 10ML VIAL ONE ×2 (11:16→17:43)
--- NOTE | 2019-05-21 12:44 | PN ---
Progress Note, Physician Chief Complaint: comfortable no complaint - Current Medication List Current Medications: Active Medications Amlodipine Besylate (Norvasc -) 5 mg PO DAILY [facility] Last Admin: 05/21/19 09:28 Dose: 5 mg Insulin Aspart (Novolog Vial Sliding Scale -) 1 vial SQ ACHS [facility]; Protocol Last Admin: 05/21/19 11:18 Dose: 7 units Insulin Detemir (Levemir Vial) 20 units SQ 0700,2200 [facility] Last Admin: 05/21/19 09:30 Dose: 20 units Ondansetron HCl (Zofran Injection) 4 mg IVPUSH Q6H PRN PRN Reason: NAUSEA Last Admin: 05/20/19 22:47 Dose: 4 mg Pantoprazole Sodium (Protonix -) 40 mg PO DAILY [facility] Last Admin: 05/21/19 09:28 Dose: 40 mg Rosuvastatin Calcium (Crestor -) 5 mg PO HS [facility] - Objective Vital Signs: Vital Signs Temperature 99.3 F 05/21/19 06:00 Pulse Rate 68 05/21/19 09:30 Respiratory Rate 18 05/21/19 09:30 Blood Pressure 148/82 05/21/19 09:30 O2 Sat by Pulse Oximetry (%) 99 05/21/19 09:00 Constitutional: Yes: Calm Eyes: Yes: EOM Intact HENT: Yes: Normocephalic Neck: Yes: Trachea Midline Cardiovascular: Yes: Regular Rate and Rhythm Respiratory: Yes: CTA Bilaterally Gastrointestinal: Yes: Normal Bowel Sounds Genitourinary: Yes: WNL Breast(s): Yes: WNL Musculoskeletal: Yes: WNL Extremities: Yes: WNL Edema: No Neurological: Yes: Alert, Oriented Labs: CBC, BMP 05/21/19 07:53 05/21/19 07:53 INR, PTT INR 0.93 (0.83-1.09) 05/18/19 11:15 Assessment/Plan Current Active Problems hyperthyrodism hyperemisis related FLEX (acute kidney injury) (Acute) Chest pain due to GERD (Acute) DKA (diabetic ketoacidoses) (Acute) Gastritis (Acute) Hematemesis (Acute) Hyperlipidemia (Acute) Uncontrolled diabetes mellitus (Acute) Laboratory Results - last 24 hr 05/20/19 05/20/19 05/20/19 06:25 16:45 21:30 WBC RBC Hgb Hct MCV MCH MCHC RDW Plt Count MPV Absolute Neuts (auto) Neutrophils % Lymphocytes % Monocytes % Eosinophils % Basophils % Nucleated RBC % Sodium 140 Potassium 4.1 Chloride 106 Carbon Dioxide 24 Anion Gap 11 BUN 19.1 H Creatinine 1.0 Est GFR (CKD-EPI)AfAm 100.55 Est GFR (CKD-EPI)NonAf 86.76 POC Glucometer 210 227 Random Glucose 274 H Calcium 9.4 Total Bilirubin 0.5 AST 8 L ALT 17 Alkaline Phosphatase 100 Total Protein 6.4 Albumin 3.2 L TSH 0.11 L D Free T4 1.26 H 05/21/19 05/21/19 05/21/19 06:20 07:53 07:53 WBC 6.7 RBC 5.18 Hgb 14.4 Hct 42.7 MCV 82.3 MCH 27.7 MCHC 33.7 RDW 14.4 Plt Count 144 MPV 11.3 H Absolute Neuts (auto) 4.5 Neutrophils % 66.0 D Lymphocytes % 27.2 D Monocytes % 6.0 Eosinophils % 0.5 D Basophils % 0.3 Nucleated RBC % 0 Sodium 142 Potassium 3.8 Chloride 106 Carbon Dioxide 29 Anion Gap 7 L BUN 14.6 Creatinine 0.9 Est GFR (CKD-EPI)AfAm 114.21 Est GFR (CKD-EPI)NonAf 98.54 POC Glucometer 154 Random Glucose 126 H Calcium 8.8 Total Bilirubin 1.0 AST 10 L ALT 18 Alkaline Phosphatase 100 Total Protein 6.6 Albumin 3.2 L TSH 0.25 L D Free T4 05/21/19 05/21/19 07:53 11:13 WBC RBC Hgb Hct MCV MCH MCHC RDW Plt Count MPV Absolute Neuts (auto) Neutrophils % Lymphocytes % Monocytes % Eosinophils % Basophils % Nucleated RBC % Sodium Potassium Chloride Carbon Dioxide Anion Gap BUN Creatinine Est GFR (CKD-EPI)AfAm Est GFR (CKD-EPI)NonAf POC Glucometer 202 Random Glucose Calcium Total Bilirubin AST ALT Alkaline Phosphatase Total Protein Albumin TSH Free T4 1.26 H impression : Laboratory Tests 05/19/19 05/20/19 05/20/19 07:38 06:25 21:30 POC Glucometer 227 TSH 0.07 L 0.11 L D Free T4 05/21/19 05/21/19 05/21/19 06:20 07:53 07:53 POC Glucometer 154 TSH 0.25 L D Free T4 1.26 H 05/21/19 11:13 POC Glucometer 202 TSH Free T4 plan: bgm coverage follow thyroid function outpatient levemir 30 units am daily
[2019-05-21] MEDS: INSULIN (LEVEMIR) 100 UNITS/ML UNITS SQ SCH (21:46)
[2019-05-21] MEDS: ONDANSETRON 4 MG/2 ML VIAL IVPUSH PRN (21:46)
[2019-05-21] MEDS: ROSUVASTATIN CA 5 MG TABLET (FP) PO SCH (21:46)
[2019-05-21] MEDS ORDERED: INSULIN (LEVEMIR) 100 UNITS/ML UNITS SQ SCH (22:00)
[2019-05-22] MEDS: ONDANSETRON 4 MG/2 ML VIAL IVPUSH PRN (05:54)
[2019-05-22] MEDS: INSULIN SLIDING SCALE (NOVOLOG) 1 VIAL SQ SCH ×4 (06:24→23:40)
[2019-05-22 09:34] LABS: HEMATOCRIT 42.2 % (35.4-49); HEMOGLOBIN 14.2 GM/dL (11.7-16.9); MCH 27.7 pg (25.7-33.7); MCHC 33.5 g/dl (32.0-35.9); MEAN CELL VOLUME 82.6 fl (80-96); MEAN PLT VOLUME 11.1 fl (7.5-11.1); PLATELET COUNT 145 K/MM3 (134-434); RBC 5.11 M/mm3 (4.00-5.60); RDW 14.5 % (11.9-15.9); WHITE BLOOD COUNT 5.6 K/mm3 (4.0-10.0)
[2019-05-22] MEDS: PANTOPRAZOLE 40 MG TABLET PO SCH (09:34)
[2019-05-22] MEDS: INSULIN (LEVEMIR) 100 UNITS/ML UNITS SQ SCH ×2 (09:34→22:57)
[2019-05-22] MEDS: amLODIPine BESYLATE 5 MG TABLET (FP) PO SCH (09:35)
[2019-05-22 10:03] LABS: ALBUMIN 3.1 g/dl (3.4-5.0); BILIRUBIN,TOTAL 0.6 mg/dL (0.2-1); BLOOD UREA NITROGEN 14.4 mg/dL (7-18); CALCIUM 8.9 mg/dL (8.5-10.1); CREATININE 0.8 mg/dL (0.55-1.3); POTASSIUM 3.4 mmol/L (3.5-5.1); TOT PROT 6.1 g/dl (6.4-8.2)
--- NOTE | 2019-05-22 11:03 | PN ---
Progress Note, Physician Chief Complaint: Gastritis Hyperglycemia DM Hematemesis History of Present Illness: Previous notes and events reviewed awake and alert NAD denies further episodes of hematemesis denies chest pain or palpitations is scheduled for EGD on Thursday had episodes of nausea and non-bloody vomitus last night, denies further episodes AG 19~7 - Current Medication List Current Medications: Active Medications Amlodipine Besylate (Norvasc -) 5 mg PO DAILY [facility] Last Admin: 05/22/19 09:35 Dose: 5 mg Insulin Aspart (Novolog Vial Sliding Scale -) 1 vial SQ ACHS [facility]; Protocol Last Admin: 05/22/19 06:24 Dose: Not Given Insulin Detemir (Levemir Vial) 30 units SQ 0700,2200 [facility] Last Admin: 05/22/19 09:34 Dose: 30 units Ondansetron HCl (Zofran Injection) 4 mg IVPUSH Q6H PRN PRN Reason: NAUSEA Last Admin: 05/22/19 05:54 Dose: 4 mg Pantoprazole Sodium (Protonix -) 40 mg PO DAILY [facility] Last Admin: 05/22/19 09:34 Dose: 40 mg Rosuvastatin Calcium (Crestor -) 5 mg PO HS [facility] Last Admin: 05/21/19 21:46 Dose: 5 mg - Objective Vital Signs: Vital Signs Temperature 99.2 F 05/22/19 05:22 Pulse Rate 90 05/22/19 05:22 Respiratory Rate 18 05/22/19 05:22 Blood Pressure 150/90 05/22/19 05:22 O2 Sat by Pulse Oximetry (%) 99 05/21/19 21:00 Constitutional: Yes: No Distress, Calm Eyes: Yes: Conjunctiva Clear HENT: Yes: Atraumatic Cardiovascular: Yes: Regular Rate and Rhythm Respiratory: Yes: Regular, CTA Bilaterally Gastrointestinal: Yes: Normal Bowel Sounds, Soft Musculoskeletal: Yes: WNL Extremities: Yes: WNL Edema: No Neurological: Yes: Alert, Oriented Psychiatric: Yes: Alert, Oriented Labs: CBC, BMP 05/22/19 08:08 05/22/19 08:08 INR, PTT INR 0.93 (0.83-1.09) 05/18/19 11:15 Problem List - Problems (1) FLEX (acute kidney injury) Assessment/Plan: resolved BUN/Cr 14.4/0.8 monitor Renal function Code(s): N17.9 - ACUTE KIDNEY FAILURE, UNSPECIFIED (2) Gastritis Assessment/Plan: GI on board Pantoprazole for EGD on Thursday full liquid diet, NPO after midnight Code(s): K29.70 - GASTRITIS, UNSPECIFIED, WITHOUT BLEEDING (3) Hyperlipidemia Assessment/Plan: TC 244 Crestor 5mg HS Code(s): E78.5 - HYPERLIPIDEMIA, UNSPECIFIED (4) Uncontrolled diabetes mellitus Assessment/Plan: Endocrinology on board Lantus 30U SQ BID ISS Hga1c 14% AG 19~7 Dietary consult Code(s): E11.65 - TYPE 2 DIABETES MELLITUS WITH HYPERGLYCEMIA (5) Hematemesis Assessment/Plan: GI on board no further episodes reported for ENdoscopy on Thursday Pantoprazole stable Hg 14.2 Code(s): K92.0 - HEMATEMESIS (6) Chest pain due to GERD Assessment/Plan: Cardiology on board cleared for EGD on thursday no further reports of chest pain Code(s): R07.9 - CHEST PAIN, UNSPECIFIED; K21.9 - GASTRO-ESOPHAGEAL REFLUX DISEASE WITHOUT ESOPHAGITIS Assessment/Plan see problem list SCDs
[2019-05-22] MEDS ORDERED: POTASSIUM CHLORIDE ORAL LIQUID 20 MEQ/15 ML PO ONE (11:17)
[2019-05-22] MEDS ORDERED: DEXTROSE 5%-NORMAL SALINE 1,000 ML IV SCH (11:30)
[2019-05-22] MEDS ORDERED: INSULIN (LEVEMIR) 100 UNITS/ML UNITS SQ ONE (11:51)
[2019-05-22] MEDS ORDERED: INSULIN (NOVOLOG) ASPART 100 UNITS/ML 10ML VIAL ONE (11:51)
[2019-05-22] MEDS: ROSUVASTATIN CA 5 MG TABLET (FP) PO SCH (22:57)
[2019-05-23] MEDS ORDERED: DEXTROSE 5%-NORMAL SALINE 1,000 ML IV SCH (00:01)
[2019-05-23] MEDS: INSULIN SLIDING SCALE (NOVOLOG) 1 VIAL SQ SCH ×3 (06:14→17:05)
[2019-05-23] MEDS: INSULIN (LEVEMIR) 100 UNITS/ML UNITS SQ SCH (06:27)
[2019-05-23 08:05] LABS: HEMATOCRIT 41.6 % (35.4-49); HEMOGLOBIN 13.8 GM/dL (11.7-16.9); MCH 27.9 pg (25.7-33.7); MCHC 33.2 g/dl (32.0-35.9); MEAN PLT VOLUME 11.4 fl (7.5-11.1); PLATELET COUNT 162 K/MM3 (134-434); RBC 4.96 M/mm3 (4.00-5.60); RDW 14.5 % (11.9-15.9); WHITE BLOOD COUNT 5.8 K/mm3 (4.0-10.0)
[2019-05-23 08:29] LABS: ALBUMIN 2.9 g/dl (3.4-5.0); BILIRUBIN,TOTAL 0.5 mg/dL (0.2-1); BLOOD UREA NITROGEN 13.4 mg/dL (7-18); CALCIUM 8.6 mg/dL (8.5-10.1); CREATININE 0.9 mg/dL (0.55-1.3); POTASSIUM 3.7 mmol/L (3.5-5.1); TOT PROT 5.8 g/dl (6.4-8.2)
[2019-05-23] MEDS: PANTOPRAZOLE 40 MG TABLET PO SCH (11:46)
[2019-05-23] MEDS: amLODIPine BESYLATE 5 MG TABLET (FP) PO SCH (11:46)
[2019-05-23 15:33] VITALS: BP 124/74; PULSE 71; TEMP 97.9
--- NOTE | 2019-05-23 15:52 | DS ---
Physical Examination Vital Signs: Vital Signs Temperature 97.9 F 05/23/19 15:30 Pulse Rate 71 05/23/19 15:30 Respiratory Rate 18 05/23/19 15:30 Blood Pressure 124/74 05/23/19 15:30 O2 Sat by Pulse Oximetry (%) 980 H 05/23/19 11:21 Constitutional: Yes: No Distress, Calm Eyes: Yes: Conjunctiva Clear HENT: Yes: Atraumatic, Normocephalic Neck: Yes: Supple Cardiovascular: Yes: Regular Rate and Rhythm Respiratory: Yes: Regular Gastrointestinal: Yes: Normal Bowel Sounds Musculoskeletal: Yes: WNL Extremities: Yes: WNL Integumentary: Yes: WNL Neurological: Yes: Alert, Oriented Labs: CBC, BMP 05/23/19 06:55 05/23/19 06:55 Discharge Summary Problems reviewed: Yes Reason For Visit: GASTRITIS Current Active Problems FLEX (acute kidney injury) (Acute) Chest pain due to GERD (Acute) DKA (diabetic ketoacidoses) (Acute) Gastritis (Acute) Hematemesis (Acute) Hyperlipidemia (Acute) Uncontrolled diabetes mellitus (Acute) Hospital Course: patient was seen and evaluated by cardiology and GI, cardiac work up negative, chest pain likely due to acid reflux. patient had EGD which showed reflux esophagitis. he was started on regular diet. he was seen by endocrinology. he is stable for dc. Condition: Improved - Instructions Referrals: Tobias Wade DO [Staff Physician] - Jonas Mcnally MD [Primary Care Provider] - Disposition: HOME - Home Medications Comprehensive Discharge Medication List: Ambulatory Orders metFORMIN HCL [Metformin HCl] 1,000 mg PO BIDAC 05/19/19 Prescription Drug Monitoring Program (I-STOP) results: I-STOP not reviewed
[2019-05-23] MEDS ORDERED: INSULIN (NOVOLOG) ASPART 100 UNITS/ML 10ML VIAL ONE (17:18)
== END 2019-05-23 18:30 | disposition home or self-care (01) | DRG 243 ==
LOC: JER 09:18 → JERBED 12:36 → J5S 17:54
PROVIDERS: ADMIT Internal Medicine; ATTEND Family Medicine
PROC: 0DJ08ZZ Inspection of Upper Intestinal Tract, Via Natural or Artificial Opening Endoscopic (ICD-10-PCS; principal; 2019-05-23 11:30)
DX: K21.0 Gastro-esophageal reflux disease with esophagitis (principal); E11.10 Type 2 diabetes mellitus with ketoacidosis without coma; N17.9 Acute kidney failure, unspecified; K92.0 Hematemesis; K29.00 Acute gastritis without bleeding; E78.5 Hyperlipidemia, unspecified; R35.8 Other polyuria; Z79.4 Long term (current) use of insulin
CPT/HCPCS: 36415; 36600; 71046-TC-FY; 80048; 80053; 80061; 81003; 82010; 82375; 82550; 82803; 82962; 83036; 83050; 83605; 83690; 83721; 83735; 84100; 84439; 84443; 84484; 85025; 85027; 85610; 86850; 86900; 86901; 93005; 93010; 99285-25; J7030

== ENCOUNTER 2021-03-28 09:32 | Emergency (ER) | payer OTHER ==
[2021-03-28 09:40] VITALS: TEMP 98.1; BMI 32.1
[2021-03-28] MEDS ORDERED: PANTOPRAZOLE SODIUM 40 MG VIAL IVPUSH ONE (11:12)
[2021-03-28] MEDS ORDERED: LACTATED RINGERS SOLUTION 1,000 ML IV STA (11:12)
[2021-03-28] MEDS ORDERED: METOCLOPRAMIDE HCL INJECTION 10 MG/2 ML VIAL IVPUSH ONE (11:12)
[2021-03-28] MEDS ORDERED: METOCLOPRAMIDE HCL INJECTION 10 MG/2 ML VIAL ONE (11:33)
[2021-03-28] MEDS ORDERED: PANTOPRAZOLE SODIUM 40 MG VIAL ONE (11:34)
[2021-03-28 13:45] LABS: BASO % 0.2 % (0-2.0); HEMATOCRIT 42.9 % (35.4-49); HEMOGLOBIN 13.9 GM/dL (11.7-16.9); LYMPH % 11.1 % (8-40); MCH 26.9 pg (25.7-33.7); MCHC 32.3 g/dl (32.0-35.9); MEAN CELL VOLUME 83.2 fl (80-96); MEAN PLT VOLUME 9.9 fl (7.5-11.1); MONO % 2.1 % (3.8-10.2); NEUT % 86.6 % (42.8-82.8); PLATELET COUNT 264 10^3/uL (134-434); RBC 5.16 M/mm3 (4.00-5.60); RDW 14.5 % (11.9-15.9); WHITE BLOOD COUNT 7.5 K/mm3 (4.0-10.0)
[2021-03-28 13:50] LABS: VENOUS BASE EXCESS 0.8 mmol/L (-2-2); VENOUS O2 SATURATION 73.6 % (70-80); VENOUS PCO2 48.4 mmHg (38-52); VENOUS PH 7.362 (7.310-7.410)
[2021-03-28 13:55] LABS: INR 0.96 (0.83-1.09)
[2021-03-28 13:57] LABS: ACTIVATED PTT 27.3 SECONDS (25.2-36.5)
[2021-03-28 14:03] LABS: BLOOD UREA NITROGEN 11.5 mg/dL (7-18); CALCIUM 10.1 mg/dL (8.5-10.1)
[2021-03-28 14:04] LABS: GLUCOSE,RANDOM 346 mg/dL (74-106)
[2021-03-28 14:06] LABS: CREATININE 1.2 mg/dL (0.55-1.3); LIPASE 147 U/L (73-393)
[2021-03-28 14:07] LABS: SGOT/AST 8 U/L (15-37); SGPT/ALT 25 U/L (13-61)
[2021-03-28 14:08] LABS: BILIRUBIN,TOTAL 0.3 mg/dL (0.2-1); TOT PROT 7.2 g/dl (6.4-8.2)
[2021-03-28 14:09] LABS: ALK PHOS 82 U/L (45-117)
[2021-03-28 14:29] LABS: ANION GAP 9 MMOL/L (8-16); CHLORIDE 102 mmol/L (98-107); CO2 27 mmol/L (21-32); SODIUM 139 mmol/L (136-145)
[2021-03-28] MEDS ORDERED: MAG HYDROX/AL HYDROX/SIMETH -MYLANTA- ORAL SUSPENSION PO ONE (14:56)
[2021-03-28] MEDS ORDERED: ACETAMINOPHEN 325 MG TABLET (FP) PO ONE (14:56)
[2021-03-28] MEDS ORDERED: MAG HYDROX/AL HYDROX/SIMETH 30 ML UNIT-DOSE CUP ONE ×2 (14:59→15:35)
[2021-03-28] MEDS ORDERED: ACETAMINOPHEN 325 MG TABLET (FP) ONE ×2 (14:59→15:35)
[2021-03-28] MEDS ORDERED: FAMOTIDINE 20 MG/50 ML IVPB 20 MG/50 ML MG IVPB ONE ×2 (16:00→16:09)
[2021-03-28 17:45] VITALS: BP 156/83; PULSE 66
== END 2021-03-28 18:07 | disposition home or self-care (01) ==
LOC: JER 09:32
PROC: 3E033NZ Introduction of Analgesics, Hypnotics, Sedatives into Peripheral Vein, Percutaneous Approach (ICD-10-PCS; principal; 2021-03-28)
PROC: 3E033GC Introduction of Other Therapeutic Substance into Peripheral Vein, Percutaneous Approach (ICD-10-PCS; 2021-03-28)
PROC: 3E033GC Introduction of Other Therapeutic Substance into Peripheral Vein, Percutaneous Approach (ICD-10-PCS; 2021-03-28)
PROC: 3E0337Z Introduction of Electrolytic and Water Balance Substance into Peripheral Vein, Percutaneous Approach (ICD-10-PCS; 2021-03-28)
DX: R11.2 Nausea with vomiting, unspecified (principal)
CPT/HCPCS: 36415; 71046-TC-FY; 80053; 82010; 82550; 82803; 82962; 83690; 84484; 85025; 85610; 85730; 86850; 86900; 86901; 93005; 93010; 96365; 96375; 99284-25; C9803; U0003; U0005

== ENCOUNTER 2023-03-17 14:18 | Observation (INO) | payer OTHER ==
[2023-03-17] MEDS ORDERED: PANTOPRAZOLE SODIUM 40 MG VIAL IVPUSH ONE (15:12)
[2023-03-17] MEDS ORDERED: SODIUM CHLORIDE 0.9% 500 ML INFUS.BAG IV ONE ×2 (15:12→17:29)
[2023-03-17] MEDS ORDERED: MAG HYDROX/AL HYDROX/SIMETH 30 ML UNIT-DOSE CUP PO ONE (15:12)
[2023-03-17] MEDS ORDERED: LIDOCAINE VISCOUS 2% ORAL/TOP 15 ML UNIT-DOSE CUP MM ONE (15:13)
[2023-03-17] MEDS ORDERED: METOCLOPRAMIDE HCL INJECTION 10 MG/2 ML VIAL IVPUSH ONE (15:14)
[2023-03-17] MEDS ORDERED: MAG HYDROX/AL HYDROX/SIMETH 30 ML UNIT-DOSE CUP ONE (15:46)
[2023-03-17] MEDS ORDERED: LIDOCAINE VISCOUS 2% ORAL/TOP 15 ML UNIT-DOSE CUP ONE (15:46)
[2023-03-17] MEDS ORDERED: PANTOPRAZOLE SODIUM 40 MG VIAL ONE (15:46)
[2023-03-17] MEDS ORDERED: METOCLOPRAMIDE HCL INJECTION 10 MG/2 ML VIAL ONE (15:46)
[2023-03-17 16:13] VITALS: RESP 18
[2023-03-17 16:16] LABS: BASO % 0.4 % (0-2.0); EOS % 0.1 % (0-4.5); HEMATOCRIT 42.6 % (35.4-49); HEMOGLOBIN 13.9 GM/dL (11.7-16.9); MCH 27.2 pg (25.7-33.7); MCHC 32.5 g/dl (32.0-35.9); MEAN CELL VOLUME 83.7 fl (80-96); MEAN PLT VOLUME 9.4 fl (7.5-11.1); MONO % 5.8 % (3.8-10.2); NEUT % 71.7 % (42.8-82.8); PLATELET COUNT 244 10^3/uL (134-434); RBC 5.09 M/mm3 (4.00-5.60); RDW 14.5 % (11.9-15.9); WHITE BLOOD COUNT 12.3 K/mm3 (4.0-10.0)
[2023-03-17 16:22] LABS: INR 1.03 (0.83-1.09); PROTHROMBIN TIME (PATIENT) 11.9 SEC (9.7-13.0)
[2023-03-17 16:25] LABS: ACTIVATED PTT 26.9 SECONDS (25.2-36.5)
[2023-03-17 16:37] LABS: POTASSIUM 3.9 mmol/L (3.5-5.1)
[2023-03-17 16:39] LABS: ALBUMIN 3.7 g/dl (3.4-5.0); BLOOD UREA NITROGEN 20.9 mg/dL (7-18); CALCIUM 10.2 mg/dL (8.5-10.1); MAGNESIUM 1.8 mg/dL (1.8-2.4)
[2023-03-17 16:43] LABS: CREATININE 1.1 mg/dL (0.55-1.3)
[2023-03-17 16:45] LABS: BILIRUBIN,TOTAL 0.5 mg/dL (0.2-1); TOT PROT 7.3 g/dl (6.4-8.2)
[2023-03-17] MEDS ORDERED: ONDANSETRON 4 MG/2 ML VIAL IVPUSH ONE (17:29)
[2023-03-17] MEDS ORDERED: ONDANSETRON 4 MG/2 ML VIAL IVPUSH PRN (17:53)
[2023-03-17] MEDS ORDERED: DOCUSATE SODIUM 100 MG CAPSULE (FP) PO ONE (17:58)
[2023-03-17] MEDS ORDERED: ONDANSETRON 4 MG/2 ML VIAL ONE (18:10)
[2023-03-17] MEDS: LACTATED RINGERS SOLUTION 1,000 ML/1,000 ML INFUS.BAG IV SCH (18:51)
[2023-03-17] MEDS: INSULIN ASPART SLIDING SCALE (NOVOLOG) 1 VIAL SQ SCH (22:36)
[2023-03-18 01:02] VITALS: BMI 16.8
[2023-03-18] MEDS: INSULIN ASPART SLIDING SCALE (NOVOLOG) 1 VIAL SQ SCH ×4 (06:28→21:44)
[2023-03-18] MEDS ORDERED: FLU VACCINE (FLULAVAL) PF 60 MCG/0.5 ML SYRINGE 2023-2024 IM ONE (09:00)
[2023-03-18 09:47] LABS: BASO % 0.3 % (0-2.0); EOS % 0.1 % (0-4.5); HEMATOCRIT 41.5 % (35.4-49); HEMOGLOBIN 13.6 GM/dL (11.7-16.9); LYMPH % 28.8 % (8-40); MCH 27.1 pg (25.7-33.7); MCHC 32.8 g/dl (32.0-35.9); MEAN CELL VOLUME 82.4 fl (80-96); MEAN PLT VOLUME 9.5 fl (7.5-11.1); MONO % 7.8 % (3.8-10.2); PLATELET COUNT 208 10^3/uL (134-434); RBC 5.03 M/mm3 (4.00-5.60); RDW 14.9 % (11.9-15.9)
[2023-03-18] MEDS: POLYETHYLENE GLYCOL (HEALTHYLAX) 3350 17 GM PACKET PO SCH ×2 (09:48→21:43)
[2023-03-18] MEDS: PANTOPRAZOLE 40 MG TABLET PO SCH (09:48)
[2023-03-18 10:34] LABS: POTASSIUM 3.6 mmol/L (3.5-5.1)
[2023-03-18] MEDS ORDERED: METOCLOPRAMIDE HCL INJECTION 10 MG/2 ML VIAL IVPUSH SCH (11:00)
[2023-03-18 11:08] LABS: ALBUMIN 3.1 g/dl (3.4-5.0); BLOOD UREA NITROGEN 17.3 mg/dL (7-18); CALCIUM 8.9 mg/dL (8.5-10.1)
[2023-03-18 11:10] LABS: CREATININE 0.9 mg/dL (0.55-1.3)
[2023-03-18 11:12] LABS: BILIRUBIN,TOTAL 0.6 mg/dL (0.2-1); TOT PROT 6.2 g/dl (6.4-8.2)
[2023-03-18] MEDS: MAG HYDROX/AL HYDROX/SIMETH 30 ML UNIT-DOSE CUP PO SCH ×2 (12:00→17:07)
[2023-03-18] MEDS ORDERED: METOCLOPRAMIDE HCL INJECTION 10 MG/2 ML VIAL IVPUSH PRN (15:52)
[2023-03-18] MEDS ORDERED: METOCLOPRAMIDE HCL INJECTION 10 MG/2 ML VIAL IVPUSH ONE (15:52)
[2023-03-18] MEDS: ISOSORBIDE MONONITRATE 30 MG TAB.SR.24H (FP) PO SCH (17:06)
[2023-03-18] MEDS: LACTATED RINGERS SOLUTION 1,000 ML/1,000 ML INFUS.BAG IV SCH (17:07)
[2023-03-18 19:05] LABS: URINE APPEARANCE CLEAR; URINE BILIRUBIN NEGATIVE (NEGATIVE); URINE COLOR YELLOW; URINE GLUCOSE (UA) NEGATIVE (NEGATIVE); URINE KETONE TRACE (NEGATIVE); URINE LEUK ESTERASE NEGATIVE (NEGATIVE); URINE NITRITE NEGATIVE (NEGATIVE); URINE PROTEIN NEGATIVE (NEGATIVE); URINE UROBILINOGEN 0.2 mg/dL (0.2-1.0)
[2023-03-18] MEDS: INSULIN (LEVEMIR) 100 UNITS/ML UNITS SQ SCH (21:43)
[2023-03-19] MEDS: MAG HYDROX/AL HYDROX/SIMETH 30 ML UNIT-DOSE CUP PO SCH ×2 (06:23→10:50)
[2023-03-19] MEDS: INSULIN (LEVEMIR) 100 UNITS/ML UNITS SQ SCH (06:24)
[2023-03-19] MEDS: INSULIN ASPART SLIDING SCALE (NOVOLOG) 1 VIAL SQ SCH ×2 (06:29→11:47)
[2023-03-19 09:39] VITALS: BP 110/75; PULSE 82; TEMP 98.1
[2023-03-19] MEDS: ISOSORBIDE MONONITRATE 30 MG TAB.SR.24H (FP) PO SCH (10:50)
[2023-03-19] MEDS: POLYETHYLENE GLYCOL (HEALTHYLAX) 3350 17 GM PACKET PO SCH (10:50)
[2023-03-19] MEDS: PANTOPRAZOLE 40 MG TABLET PO SCH (10:50)
== END 2023-03-19 14:33 | disposition home or self-care (01) ==
LOC: JER 14:18 → JERBED 17:28 → J6S 20:30
PROVIDERS: ADMIT Internal Medicine; ATTEND Internal Medicine
PROC: 3E023GC Introduction of Other Therapeutic Substance into Muscle, Percutaneous Approach (ICD-10-PCS; principal; 2023-03-17)
PROC: 3E013VG Introduction of Insulin into Subcutaneous Tissue, Percutaneous Approach (ICD-10-PCS; 2023-03-17)
PROC: 3E033GC Introduction of Other Therapeutic Substance into Peripheral Vein, Percutaneous Approach (ICD-10-PCS; 2023-03-17)
PROC: 3E0337Z Introduction of Electrolytic and Water Balance Substance into Peripheral Vein, Percutaneous Approach (ICD-10-PCS; 2023-03-17)
DX: K29.70 Gastritis, unspecified, without bleeding (principal); E11.65 Type 2 diabetes mellitus with hyperglycemia; E78.5 Hyperlipidemia, unspecified; R11.2 Nausea with vomiting, unspecified; Z23 Encounter for immunization
CPT/HCPCS: 0241U-QW; 36415; 71046-TC-FY; 74018-TC-FY; 74177-TC; 80053; 81003; 82272; 82962; 83036; 83605; 83690; 83735; 84100; 84484; 85025; 85610; 85730; 86850; 86900; 86901; 87086; 90471; 90686; 93005; 93010; 96372; 96374; 96375; 96376; 99285-25; G0378; Q9967

== ENCOUNTER 2024-02-27 13:49 | Emergency (ER) | payer OTHER ==
[2024-02-27 14:02] VITALS: TEMP 99.1; BMI 32.1
[2024-02-27] MEDS ORDERED: SUCRALFATE 1 GM TABLET (FP) ONE (14:42)
[2024-02-27] MEDS ORDERED: ACETAMINOPHEN INJECTION 100 ML ONE (14:43)
[2024-02-27] MEDS: LACTATED RINGERS SOLUTION 1000 ML INFUS.BAG IV ONE (15:09)
[2024-02-27] MEDS: ACETAMINOPHEN 1000 MG/100 ML BAG IVPB ONE (15:10)
[2024-02-27 15:15] LABS: BASO % 1.1 % (0-2.0); EOS % 0.8 % (0-4.5); HEMATOCRIT 49.6 % (35.4-49); HEMOGLOBIN 16.1 GM/dL (11.7-16.9); LYMPH % 33.2 % (8-40); MCH 27.3 pg (25.7-33.7); MCHC 32.4 g/dl (32.0-35.9); MEAN CELL VOLUME 84.1 fl (80-96); MEAN PLT VOLUME 9.5 fl (7.5-11.1); MONO % 6.8 % (3.8-10.2); NEUT % 58.1 % (42.8-82.8); PLATELET COUNT 217 10^3/uL (134-434); WHITE BLOOD COUNT 7.1 K/mm3 (4.0-10.0)
[2024-02-27] MEDS: SUCRALFATE 1 GM TABLET (FP) PO ONE (15:18)
[2024-02-27 15:27] LABS: POTASSIUM 4.1 mmol/L (3.5-5.1)
[2024-02-27 15:29] LABS: ALBUMIN 3.7 g/dl (3.4-5.0); BLOOD UREA NITROGEN 21.3 mg/dL (7-18)
[2024-02-27 15:32] LABS: CREATININE 1.1 mg/dL (0.55-1.3)
[2024-02-27 15:34] LABS: BILIRUBIN,TOTAL 0.7 mg/dL (0.2-1); PROTHROMBIN TIME (PATIENT) 11.3 SEC (9.7-13.0); TOT PROT 7.2 g/dl (6.4-8.2)
[2024-02-27 15:37] LABS: ACTIVATED PTT 27.6 SECONDS (25.2-36.5)
[2024-02-27] MEDS ORDERED: MAGNESIUM CITRATE 300 ML BOTTLE ONE (19:25)
[2024-02-27] MEDS: MAGNESIUM CITRATE 300 ML BOTTLE PO ONE (19:50)
[2024-02-27 19:51] LABS: PH,URINE 5.5 (5.0-8.0); URINE APPEARANCE CLEAR; URINE BILIRUBIN NEGATIVE (NEGATIVE); URINE COLOR YELLOW; URINE GLUCOSE (UA) TRACE (NEGATIVE); URINE KETONE 2+ (NEGATIVE); URINE LEUK ESTERASE NEGATIVE (NEGATIVE); URINE NITRITE NEGATIVE (NEGATIVE); URINE PROTEIN TRACE (NEGATIVE); URINE UROBILINOGEN 0.2 mg/dL (0.2-1.0)
[2024-02-27 20:02] VITALS: BP 140/92; PULSE 90; RESP 18
[2024-02-27] MEDS: SODIUM PHOSPHATE/NA BIPHOS 133 ML ENEMA PR ONE (20:13)
[2024-02-27] MEDS: POLYETHYLENE GLYCOL (HEALTHYLAX) 3350 17 GM PACKET PO ONE (20:45)
[2024-02-27] MEDS ORDERED: SUCRALFATE 1 GM TABLET (FP) PO SCH (22:00)
== END 2024-02-27 20:48 | disposition home or self-care (01) ==
LOC: JER 13:49
PROC: 3E033NZ Introduction of Analgesics, Hypnotics, Sedatives into Peripheral Vein, Percutaneous Approach (ICD-10-PCS; principal; 2024-02-27)
DX: K29.70 Gastritis, unspecified, without bleeding (principal); K59.00 Constipation, unspecified; R11.2 Nausea with vomiting, unspecified; R10.13 Epigastric pain
CPT/HCPCS: 36415; 74177-TC; 80053; 81003; 83605; 83690; 83735; 85025; 85610; 85730; 87086; 93005; 93010; 99285-25; J0131; Q9967